=== PATIENT | female | born 1975 | race Caucasian/White ===

== ENCOUNTER → 2017-12-21 11:03 | Outpatient (CLI) | payer SELFPAY ==
[2017-12-21 12:42] LABS: Anion Gap 7 (5-15); BUN 14 mg/dL (7-18); BUN/Creat Ratio 17.8 RATIO (10-20); Calcium,Total 8.9 mg/dL (8.5-10.1); Chloride 107 mmol/L (98-107); Cholesterol 148 mg/dL (200); Creatinine, Serum 0.79 mg/dL (0.55-1.02); EST Glomerular Filtration Rate 86 mL/min (>60); Est Glom Filt Rate - Afr Amer 104 mL/min (>60); Glucose 94 mg/dL (74-106); High Density Lipoprotein 67 mg/dL; Potassium 4.1 mmol/L (3.5-5.1); Sodium Level 142 mmol/L (136-145); Thyroid Stim Hormone (TSH) 1.82 uIU/mL (0.358-3.74); Triglycerides 121 mg/dL; Very Low Density Lipoprotein 24 mg/dL (5-40)
== END ==
PROVIDERS: Family Provider Family Medicine; PCP Family Medicine; Visit Provider Family Medicine
DX: Z00.00 Encounter for general adult medical examination without abnormal findings (principal)
CPT/HCPCS: 36415; 80048; 80061; 84443

== ENCOUNTER 2018-01-13 04:16 | Emergency (ER) | payer SELFPAY ==
[2018-01-13 04:17] VITALS: BP 134/99; PULSE 92; RESP 20; TEMP 36.7; O2SAT 97; BMI 43.1
[2018-01-13] MEDS: Ibuprofen 400 MG Tablet 800 MG PO (04:30)
--- NOTE | 2018-01-13 04:58 | ED.VISSUMM ---
- ER Visit Summary Date of Service: 01/13/18 Chief Complaint: [] Sore throat History of Present Illness: The patient is a 42 F complaining of sore throat since yesterday. Denies any other symptoms. No home treatment. No sick contacts. Current severity is mild to moderate. Physical Examination: Vital signs reviewed General: Well-nourished well-developed Head: Normocephalic atraumatic Eyes: Pupils equal round and reactive to light extraocular movements intact ENT: TMs clear no hemotympanum no trauma. Throat exam shows oropharyngeal tonsillar erythema with no exudate 1-2+. Neck: Mild tender anterior lymphadenopathy Cardiovascular: Regular rate rhythm no murmurs normal S1-S2 Respiratory: No distress clear to auscultation bilaterally chest nontender Abdomen: Soft nontender nondistended normal bowel sounds no masses Back: Nontender no CVA tenderness Extremities: Nontender active range of motion ?4 extremities no trauma Skin: Normal color no trauma Neuro alert oriented cranial nerves II through XII intact normal strength sensation reflexes Test Results: [] Emergency Department Course and Treatment: [] Rapid strep negative. Patient given ibuprofen. Will continue salt water gargles and ibuprofen. This is likely viral in nature. No antibiotics are indicated Treatment Plan: [] Disposition: [] Impression: [] Viral tonsillitis pharyngitis This note was generated with [employer] dictation software. It may contain incorrect words, spelling, and punctuation that were not noted in review of the chart prior to signing ED Disposition - Plan for ED Patient: Chief Complaint: Sore Throat Referrals: Jasson Quispe MD [Primary Care Provider] -
--- NOTE | 2018-01-13 05:00 | ED.DEP ---
ED Disposition - Plan for ED Patient: Disposition: Home or Assisted Living Chief Complaint: Sore Throat Instructions: ED Pharyngitis Viral Referrals: Jasson Quispe MD [Primary Care Provider] -
[2018-01-13 05:06] VITALS: BP 134/99; PULSE 92; RESP 20; O2SAT 97
== END 2018-01-13 05:08 | disposition home or self-care (01) ==
PROVIDERS: Emergency Provider Emergency Medicine; Family Provider Family Medicine; PCP Family Medicine
DX: J03.90 Acute tonsillitis, unspecified (principal)
CPT/HCPCS: 87880; 99283

== ENCOUNTER → 2018-09-21 15:30 | Outpatient (CLI) | payer OTHER, SELFPAY ==
[2018-01-15 08:58] VITALS: BMI 41.0
[2018-09-21 17:46] LABS: Anion Gap 8 (5-15); BUN 18 mg/dL (7-18); BUN/Creat Ratio 23.6 RATIO (10-20); Calcium,Total 8.6 mg/dL (8.5-10.1); Chloride 106 mmol/L (98-107); Cholesterol 173 mg/dL (200); Creatinine, Serum 0.76 mg/dL (0.55-1.02); EST Glomerular Filtration Rate 89 mL/min (>60); Est Glom Filt Rate - Afr Amer 107 mL/min (>60); Glucose 85 mg/dL (74-106); High Density Lipoprotein 79 mg/dL; Potassium 3.6 mmol/L (3.5-5.1); Sodium Level 140 mmol/L (136-145); Thyroid Stim Hormone (TSH) 2.25 uIU/mL (0.358-3.74); Triglycerides 112 mg/dL; Very Low Density Lipoprotein 22 mg/dL (5-40)
[2018-09-21 18:40] LABS: Vitamin D,25 Hydroxy 9.6 ng/mL (29.95-100.01)
== END ==
PROVIDERS: Family Provider Family Medicine; PCP Family Medicine; Referring Provider Family Medicine; Visit Provider Family Medicine
DX: Z00.00 Encounter for general adult medical examination without abnormal findings (principal)
CPT/HCPCS: 36415; 80048; 80061; 82306; 84443

== ENCOUNTER → 2018-10-25 17:00 | Outpatient (CLI) | payer OTHER, SELFPAY ==
--- NOTE | 2018-10-25 16:47 | BI_ITS ---
MAMMOGRAPHY - BILATERAL SCREENING REASON FOR EXAM: Female, 43 years old. Routine annual screening examination. PERTINENT HISTORY: Grandmother with breast cancer. Aunt with breast cancer. TECHNIQUE: Digital bilateral breast deepika (3D mammographic acquisition) in the CC and MLO projections. 2-D mediolateral oblique (MLO) and craniocaudad (CC) views of both breasts were obtained. CAD: Full Field Digital Mammography with Computer Added Detection was performed. COMPARISON: None. Baseline examination. FINDINGS: Breast Composition: The breasts are heterogeneously dense, which may obscure small masses. There are no dominant masses or suspicious calcifications. Benign appearing bilateral axillary lymph nodes. No other significant abnormalities are identified. BI/SCREENING MAMM (CAD), BILAT IMPRESSION: Negative screening mammogram. Yearly followup mammogram recommended. (A) ASSESSMENT CATEGORY: BIRADS Category 2: Benign. A letter regarding these results will be sent to the patient by the facility within 30 days. Approximately 10% of breast cancers are not detected by mammography. A normal mammogram should not delay biopsy of a clinically suspicious abnormality. [id number] Electronically Signed: Drew Watson, at 9:00 EDT , Service support ,
== END ==
PROVIDERS: Family Provider Family Medicine; PCP Family Medicine; Referring Provider Family Medicine; Visit Provider Family Medicine
DX: Z12.31 Encounter for screening mammogram for malignant neoplasm of breast (principal)
CPT/HCPCS: 77063; 77067

== ENCOUNTER 2019-05-06 15:35 | Emergency (ER) | payer OTHER, SELFPAY ==
[2019-05-06 15:37] VITALS: BP 143/90; PULSE 83; RESP 16; TEMP 36.6; O2SAT 100; BMI 43.7
--- NOTE | 2019-05-06 16:42 | CT_ITS ---
STUDY: CT BRAIN WITHOUT CONTRAST REASON FOR EXAM: Female, 44 years old. Right-sided headache, visual changes RADIATION DOSAGE (If Supplied By Facility): CTDIvol = ( 60.81 ) mGy, DLP = ( 1021.47 ) mGycm TECHNIQUE: Transaxial CT imaging of the brain was performed without administration of intravenous contrast material. Individualized dose optimization techniques were used for this CT. COMPARISON: No relevant priors. FINDINGS: Normal soft tissue structures. Normal calvarium. Normal size ventricles and extra-axial spaces for the patient's age. Normal white matter tracts of the cerebral hemispheres. Normal basal ganglia and thalami. Normal brainstem. Normal cerebellum. There is no intracranial hemorrhage. There are no findings of an acute ischemic infarction. Normal visualized paranasal sinuses. CT/Brain/Head without Contrast IMPRESSION: Normal unenhanced CT scan of the brain. Electronically Signed: Flakito Kramer MD at 18:08 EST , Service support ,
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
--- NOTE | 2019-05-06 18:42 | ED.DEP ---
ED Disposition - Plan for ED Patient: Instructions: CONCUSSION, No Wake Up Referrals: Jasson Quispe MD [Primary Care Provider] -
[2019-05-06 18:46] VITALS: RESP 18
== END 2019-05-06 18:51 | disposition home or self-care (01) ==
PROVIDERS: Emergency Provider Emergency Medicine; Family Provider Family Medicine; PCP Family Medicine
DX: S06.0X0A Concussion without loss of consciousness, initial encounter (principal); W50.0XXA Accidental hit or strike by another person, initial encounter; Y92.89 Other specified places as the place of occurrence of the external cause; Y99.0 Civilian activity done for income or pay
CPT/HCPCS: 70450; 99282

== ENCOUNTER → 2019-12-17 | Outpatient (CLI) | payer BC, SELFPAY | END | disposition home or self-care (01) | LOC: LABSPEC 12-18 07:27 | PROVIDERS: PCP Family Medicine; Visit Provider Family Medicine Hospice and Palliative Medicine | DX: Z11.59 Encounter for screening for other viral diseases (principal) | CPT/HCPCS: 87635; G2023; U0003 ==

== ENCOUNTER → 2020-01-08 | Outpatient (CLI) | payer BC, SELFPAY ==
--- NOTE | 2020-01-08 07:53 | BI_ITS ---
MAMMOGRAPHY - BILATERAL SCREENING REASON FOR EXAM: Female, 44 years old. Routine annual screening examination. PERTINENT HISTORY: Grandmother with breast cancer. Aunt with breast cancer. TECHNIQUE: Digital bilateral breast gilberto (3D mammographic acquisition) in the CC and MLO projections. 2-D mediolateral oblique (MLO) and craniocaudad (CC) views of both breasts were obtained. CAD: Full Field Digital Mammography with Computer Added Detection was performed. COMPARISON: Comparison is made with prior study dated 10/25/2018. FINDINGS: Breast Composition: The breasts are heterogeneously dense, which may obscure small masses. There is a 1.9 cm x 1.5 cm well-defined nodule in the retroareolar region of the left breast. This may represent a cyst. Correlation with ultrasound is recommended. Stable small benign appearing bilateral axillary lymph nodes. No other significant abnormalities are identified. BI/SCREEN MAMM (CAD) W/GILBERTO BILAT IMPRESSION: 1.5 cm x 1.9 cm well-defined retroareolar nodule in the left breast. Ultrasound correlation is recommended. ASSESSMENT CATEGORY: BIRADS Category 0: Incomplete. Need additional imaging evaluation. A letter regarding these results will be sent to the patient by the facility within 30 days. Approximately 10% of breast cancers are not detected by mammography. A normal mammogram should not delay biopsy of a clinically suspicious abnormality. [id number] Electronically Signed: Drew Watson, at 9:21 EDT , Service support ,
== END | disposition home or self-care (01) ==
LOC: OPBI 07:51
PROVIDERS: PCP Family Medicine; Referring Provider Family Medicine; Visit Provider Family Medicine
DX: Z12.31 Encounter for screening mammogram for malignant neoplasm of breast (principal)
CPT/HCPCS: 77063; 77067

== ENCOUNTER → 2020-01-09 | Outpatient (CLI) | payer BC, SELFPAY ==
--- NOTE | 2020-01-09 12:54 | US_ITS ---
STUDY: ULTRASOUND BREAST - LEFT REASON FOR EXAM: Female, 44 years old. Abnormal screening mammogram. TECHNIQUE: Axial and longitudinal images of the LEFT breast were performed with a high resolution ultrasound transducer. # OF IMAGES: 34 COMPARISON: Comparison is made with prior mammogram dated 01/08/2020. FINDINGS: LEFT Breast: The mammographic abnormality corresponds to a 1.3 cm x 1.3 cm x 0.5 cm hypoechoic solid mass within a dilated duct in the retroareolar region. This is suggestive of a ductal papillomatosis. US/Breast Limited Unilateral IMPRESSION: The mammographic and mouth equals 21.3 cm x 1.3 cm x 0.5 cm papillary lesion within the dilated retroareolar ducts. Papillomatosis should be ruled out. A biopsy is recommended. ASSESSMENT CATEGORY: BIRADS Category 4: Suspicious - Biopsy Should Be Considered. A letter regarding these results will be sent to the patient by the facility within 30 days. Electronically Signed: Drew Watson, at 14:08 EDT , Service support ,
== END | disposition home or self-care (01) ==
LOC: OPUS 12:52
PROVIDERS: PCP Family Medicine; Referring Provider Family Medicine; Visit Provider Family Medicine
DX: R92.2 Inconclusive mammogram (principal)
CPT/HCPCS: 76642

== ENCOUNTER 2020-01-24 06:10 | Day surgery (SDC) | payer BC, SELFPAY ==
--- NOTE | 2020-01-14 03:24 | HP_ITS ---
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 Required: No Accompanied by: Friend Is patient in pain?: No Allergies azithromycin Allergy (Verified 01/14/20 14:54) Rash bee pollen Allergy (Verified 01/14/20 14:54) Anaphylaxis latex Allergy (Verified 01/14/20 14:54) Swelling Penicillins [PCN] Allergy (Verified 01/14/20 14:54) Angioedema Tetanus Vaccines and Toxoid Allergy (Verified 01/14/20 14:54) Anaphylaxis TETN Allergy (Uncoded 05/06/19 15:36) Swelling Medications phentermine 15 mg-topiramate ER 92 mg capsule,[id number] multphas 1 cap PO DAILY 01/14/20 [History Confirmed 01/14/20] PFSH Medical History Abnormal mammogram of left breast (Acute) Asthma (Acute) Depression (Acute) Surgical History H/O: hysterectomy (Acute) Family History (Updated 01/14/20 @ 14:52 by Barbie Everett) Mother Asthma Arthritis Diabetes Thyroid disorder Grandmother Breast cancer Aunt Breast cancer Father Colon cancer Hypertension Grandmother CVA (cerebral vascular accident) Social History (Updated 01/14/20 @ 15:[address] Malachi Nugent MD) Smoking Status: Never smoker alcohol intake: never substance use type: does not use HPI HPI HPI: JOSE DE JESUS BOWEN is a 44 F who presents to the office today for HPI HPI Surgical H&P: Yes HPI: JOSE DE JESUS BOWEN is a 44 F who presents to the office today for abnormal breast ultrasound and mammogram. The patient had a routine mammogram which showed dilated ducts on the left side. The patient then had an ultrasound which showed dilated ducts and possible papilloma and side of the duct and a mass measuring 1.3 cm below the nipple. Patient notes she is never had a breast biopsy. She is not having any discharge from her nipple. She has no breast pain. She has no family history in her immediate family of breast cancer. ROS General General: Yes weight change; no appetite, fatigue, colon cancer, breast cancer or weakness HEENT HEENT: No difficulty swallowing, eye injury, eye surgery, swollen glands or hoarseness Endo Endocrine: No thyroid disease, diabetes mellitus, thyroid cancer, Hair loss, heat intolerance or cold intolerance Skin Skin: No rash or changing moles Breast Breast: Yes abnormal mammogram and abnormal US; no left breast lump, right breast lump, nipple discharge, breast pain or breast enlargement Musc Musculoskeletal: No back problems, arthritis, rheumatoid arthritis, gout or joint pain Cardio Cardiovascular: No murmur, pacemaker, heart disease, atrial fibrillation, high blood pressure, heart attack, heart stent, palpitations, shortness of breat with exertion or chest pain Psych Psychiatric: Yes depression; no anxiety or hearing voices Resp Respiratory: No shortness of breath, No sleep apnea, No cough, No COPD, Yes asthma, No emphysema, No wheezing Gastro Gastrointestinal: No abdominal pain, No nausea or vomiting, No diarrhea, No constipation, No blood in stool, No acid reflux, No hemorrhoids, No ulcers, No gallbladder problem, No black,tarry stools Adeel Hematologic: No blood thinners, No blood disorders, No bleeding, No anemia, No blood clots Neuro Neurologic: No system reviewed and no additional complaints, except as docu, No as per HPI, No abnormal walking, No abnormal hearing, No abnormal movements, No abnormal speech, No behavioral changes, No burning sensations, No confusion, No seizure-like activity, No unsteadiness, No dizziness, No localized weakness, No frequent falls, No headache(s), No lack of coordination, No loss of vision, No memory loss, No numbness, No other visual disturbances, No radiating pain, No restless legs, No sensory deficit, No fainting, No tingling, No tremor(s), No weakness, No other Exam Const General: cooperative Orientation: alert, oriented x3 Chest Breast inspection: normal inspection of the breasts Breast Palpation: Yes normal palpation of the breasts, No nipple discharge Resp Effort & Inspection: normal respiratory effort Auscultation: clear to auscultation bilaterally Cardio Rate: regular rate Rhythm: regular rhythm Heart Sounds: no murmurs GI Inspection: non-distended Palpation: soft, nontender Assessment & Plan Problems 1. 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 Biopsy was recommended. I recommend a central ductal excision in the operating room for biopsy of this area. I did inform her of the procedure as well as the risks of bleeding and infection. I explained that I would rather perform a central duct excision as the needle biopsy would be hard to obtain due to the fact that this is intraductal. I explained the possibility of malignancy and that if there ended up being a malignancy she would need to return to the operating room for sentinel lymph node biopsy. After discussing the procedure further and answering all questions the patient wishes to proceed. We discussed the current risks associated with COVID-19. While it is understood that there is a community spread of COVID-19, the risk of anais COVID-19 while at [facility] ([facility]) is very low; however, the risk cannot be completely mitigated because of the community spread of the disease. We discussed in detail the risk of exposure to and/or potential harm posed by the COVID-19 virus with having a surgery/procedure at this time versus the risk of delaying the surgery/procedure. It is not possible to know either the risk of delaying the surgery or procedure or chance of getting an infection with perfect accuracy, but a joint decision was made to proceed at this time with the scheduled surgery/procedure as indicated on the consent form. Patient was notified that we will need to comply with any screening or testing [facility] wishes to perform or that surgery may be delayed for any positive results. 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 no changes since previous exam.
[2020-01-14 14:55] VITALS: BMI 43.7
[2020-01-24 06:44] VITALS: BP 116/63; PULSE 72; RESP 14; TEMP 36.8; O2SAT 98; BMI 41.8
[2020-01-24] MEDS: Lactated Ringers 1,000 ML 100 ML IV (07:15)
[2020-01-24] MEDS: Bupivacaine Mpf 0.5% 30 ML VIAL (07:59)
--- NOTE | 2020-01-24 08:00 | BRBX_PTH ---
PATIENT: JOSE DE JESUS BOWEN LOC: [facility] [place] U#:[id number] AGE/SX: 44/F ROOM: RE01/24/[address]: Dr. Malachi Nugent MD : 1975 BED: DIS: 01/24/2020 SPEC #: [id number] RECD: 01/24/20 08:53 STATUS: DAVID RUSSELL #: [id number] MICHAEL: 01/24/20 08:[address]: Malachi Nugent DEPT: SURGICAL PATHOLOGY RECD BY: Isreal Hansen ENTERED: 01/24/20 09:01 SP TYPE: BREAST BX OTHR DR: Dr. Jasson Quispe MD Tissues: Left breast, NOS Procedures: Surgery Specimen Level V HEADER OPERATION: Breast central ductal excision PRE-OP DIAGNOSIS: Ductal papillomatosis of left breast TISSUE SUBMITTED: Left breast central ductal excision MICROSCOPIC DIAGNOSIS Left breast, central duct, excisional biopsy: Intraductal papilloma (1.5 cm in greatest dimension). Negative for atypia or malignancy. KARI:fredrick 01/28/20 MICROSCOPIC DESCRIPTION Slides are reviewed. GROSS DESCRIPTION Received in fixative is one container labeled with the patient's name and designated left breast central ductal excision. The specimen consists of three variable sized pieces of pinto-yellow fibroadipose tissue measuring 2 x 1.5 x 1.5 cm and 2.5 x 2 x 1.5 cm and 2 x 2 x 1.5 cm. All three pieces are inked. Serial sections of two pieces reveal pinto-yellow adipose cut surfaces with focal fibrous area. Sections of third piece reveal mostly adipose cut surfaces with scant fibrous area. The entire specimen is submitted in eight cassettes as follows: 1 & 2 - one piece, 3-5 - second piece, 6-8 - third piece. Sections will be submitted after additional fixation. / KARI:fredrick 01/24/20 TC:1 CPT: 90263
[2020-01-24 08:24] VITALS: BP 116/63; BP 121/80; PULSE 92; RESP 16; TEMP 36.8; O2SAT 92
[2020-01-24 08:31] VITALS: BP 108/66; BP 116/63; PULSE 77; RESP 16; O2SAT 94
--- NOTE | 2020-01-24 08:43 | PCM.OPRPT ---
Problem List (1) Papilloma of left breast Status: Acute Report of Operation Date of Procedure: 01/24/20 Pre-Operative Diagnosis: Ductal papilloma of the left breast Post-Operative Diagnosis: Same Surgery/Procedure Performed:: Central duct excision of the left breast Description of Procedure: Patient was brought back to the operating room and general anesthesia was induced. The left breast was prepped and draped in usual sterile fashion. A marking was made around the lateral aspect of the areola. This area was anesthetized and an incision was made with a scalpel. Electrocautery was used to deepen the incision and raised flaps. The central ductal tissue was dissected free using electrocautery and removed. The cavity was irrigated and suctioned dry. Electrocautery was used to maintain hemostasis. Next the incision was closed with interrupted 3-0 Vicryls and a continuous 4-0 Monocryl suture followed by glue. The patient tolerated the procedure well was brought to PACU in stable condition. - Admit VTE Documentation VTE Mechan Device Prophylaxis: SCD's
--- NOTE | 2020-01-24 08:47 | PCM.DC.BS ---
Discharge Diet: No Restrictions Discharge Activity: May Not Drive - for 2-3 days or while taking narcotic pain meds. May shower in (days): 1 Lifting Restrictions: 10 pounds for 1 week. Call your doctor if your incision/area has: Continuous Slow Oozing, Sudden Increased Bleeding, Increased Pain/ Swelling, Increased Redness, Foul Smelling Discharge, Swelling at the incision site Call your doctor if you observe: Fever of 101 or Higher Suture Line Care: Avoid Pulling/Pushing, Avoid Pinching/Bending Remove Dressing in (days):: 1 - Remove bulky dressing tomorrow. May leave any opsite dressing for 3-4 days. Keep dressing in place until your follow-up appointment. Allergies/Adverse Reactions: Allergies azithromycin Allergy (Verified 01/24/20 06:44) Rash bee pollen Allergy (Verified 01/24/20 06:44) Anaphylaxis latex Allergy (Verified 01/24/20 06:44) Swelling Penicillins [PCN] Allergy (Verified 01/24/20 06:44) Angioedema Tetanus Vaccines and Toxoid Allergy (Verified 01/24/20 06:44) Anaphylaxis Medications to take at Discharge Cholecalciferol (Vitamin D3) [Vitamin D3] 4,000 unit PO DAILY 01/15/20 Phentermine/Topiramate [Qsymia 15 mg-92 mg Capsule] 1 ea PO DAILY 01/15/20 Hydrocodone/Acetaminophen [Hydrocodon-Acetaminophen 5-325] 1 - 2 tab PO Q6H PRN 5 Days #20 tablet 01/24/20 The following prescriptions were given: Hydrocodone/Acetaminophen [Hydrocodon-Acetaminophen 5-325] 1 - 2 tab PO Q6H PRN 5 Days #20 tablet PRN Reason: Pain Score 4-10/10 Transmission Status: Sent to [facility] Please Follow Up With: Malachi Nugent MD When: Please call to schedule 2 week follow up appointment. [phone]
[2020-01-24 08:50] VITALS: BP 114/72; BP 116/63; PULSE 67; RESP 16; O2SAT 96
[2020-01-24 08:56] VITALS: BP 107/68; BP 116/63; PULSE 66; RESP 16; TEMP 36.5; O2SAT 95
[2020-01-24 09:51] VITALS: BP 110/70; BP 116/63; PULSE 78; RESP 16; TEMP 36.6; O2SAT 99
== END 2020-01-24 09:53 | disposition home or self-care (01) ==
LOC: SDC 06:11 → AC 06:12
PROVIDERS: Anesthesiology; PCP Family Medicine; Referring Provider Family Medicine; Visit Provider Surgery
PROC: (CPT 19120; principal; 2020-01-24 07:45)
DX: D24.2 Benign neoplasm of left breast (principal); Z11.59 Encounter for screening for other viral diseases
CPT/HCPCS: 19120; 87635; 88305; 88307; 94799; J7120; J2405; U0003

== ENCOUNTER → 2020-07-10 09:00 | Outpatient (CLI) | payer BC, SELFPAY ==
[2020-07-10 10:16] LABS: Anion Gap 5 (5-15); BUN 16 mg/dL (7-18); BUN/Creat Ratio 16.1 RATIO (10-20); Chloride 113 mmol/L (98-107); Cholesterol 152 mg/dL (200); Creatinine, Serum 0.99 mg/dL (0.55-1.02); EST Glomerular Filtration Rate 65 mL/min (>60); Est Glom Filt Rate - Afr Amer 78 mL/min (>60); Glucose 103 mg/dL (74-106); High Density Lipoprotein 72 mg/dL; Potassium 4.5 mmol/L (3.5-5.1); Sodium Level 142 mmol/L (136-145); Triglycerides 79 mg/dL; Very Low Density Lipoprotein 16 mg/dL (5-40)
== END ==
PROVIDERS: PCP Family Medicine; Referring Provider Family Medicine; Visit Provider Family Medicine
DX: E66.9 Obesity, unspecified (principal)
CPT/HCPCS: 36415; 80048; 80061

== ENCOUNTER → 2020-07-24 14:12 | Outpatient (CLI) | payer BC, SELFPAY ==
--- NOTE | 2020-07-24 14:14 | BI_ITS ---
MAMMOGRAPHY - UNILATERAL DIAGNOSTIC: LEFT BREAST REASON FOR EXAM: Female, 45 years old. Six-month follow-up for left excisional breast biopsy. PERTINENT HISTORY: Grandmother with breast cancer. Aunt with breast cancer. TECHNIQUE: Digital unilateral breast deepika (3D mammographic acquisition) in the CC and MLO projections. 2-D mediolateral oblique (MLO) and craniocaudad (CC) views of both breasts were obtained. CAD: Full Field Digital Mammography with Computer Added Detection was performed. COMPARISON: Comparison is made with prior study dated 01/08/2020 and 10/25/2018. FINDINGS: Breast Composition: The breasts are heterogeneously dense, which may obscure small masses. There are no dominant masses or suspicious calcifications. Since prior study, the patient underwent excisional biopsy of the left retroareolar nodule. Stable benign-appearing bilateral axillary lymph nodes. No other significant abnormalities are identified. BI/DIAG MAMM W/CAD, UNILAT IMPRESSION: Status post resection of the left retroareolar nodule. One year follow-up mammogram recommended. (A) ASSESSMENT CATEGORY: BIRADS Category 2: Benign. A letter regarding these results will be sent to the patient by the facility within 30 days. Approximately 10% of breast cancers are not detected by mammography. A normal mammogram should not delay biopsy of a clinically suspicious abnormality. Electronically Signed: Drew Watson MD at 8:14 EST , Service support ,
--- NOTE | 2020-07-24 15:07 | US_ITS ---
STUDY: ULTRASOUND BREAST - LEFT REASON FOR EXAM: Female, 45 years old. Prior excisional breast biopsy for papilloma. TECHNIQUE: Axial and longitudinal images of the LEFT breast were performed with a high resolution ultrasound transducer. # OF IMAGES: 24 COMPARISON: Comparison is made with prior ultrasound dated 01/09/2020 and prior mammograms dated 07/24/2020. FINDINGS: LEFT Breast: The previously seen hypoechoic solid nodule within the dilated retroareolar duct is not seen at this time in keeping with prior resection. US/Breast Limited Unilateral IMPRESSION: Unremarkable sonogram. Status post resection of the papilloma. ASSESSMENT CATEGORY: BIRADS Category 2: Benign. A letter regarding these results will be sent to the patient by the facility within 30 days. Electronically Signed: Drew Watson MD at 9:12 EST , Service support ,
== END ==
PROVIDERS: PCP Family Medicine; Referring Provider Surgery; Visit Provider Surgery
DX: D24.2 Benign neoplasm of left breast (principal); Z98.890 Other specified postprocedural states
CPT/HCPCS: 76642; 77061; 77065; G0279

== ENCOUNTER → 2021-01-13 15:51 | Outpatient (CLI) | payer BC, SELFPAY ==
[2021-01-13 17:48] LABS: Absolute Lymphocyte Count 2.28 X10^3/uL (0.83-4.51); Absolute Neutrophil Count 3.6 X10^3/uL (2.0-7.7); Basophil# 0.05 X10^3/uL; Basophil% 0.8 % (0-1); Eosinophil# 0.15 X10^3/uL; Eosinophils% 2.3 % (0-5); Hematocrit 41.9 % (37-47); Hemoglobin 13.4 g/dL (12.0-15.0); Lymphocyte # 2.28 X10^3/ul (0.83-4.51); Mean Corpuscular Hgb 28.9 pg (27.0-32.0); Mean Corpuscular Volume 90.3 fL (81-99); Mean Platelet Vol. 10.1 fl (6.2-12.0); Monocyte# 0.45 X10^3/uL; Monocyte% 6.9 % (0-10); NRBC Flagged by Analyzer 0 % (0-5); Neutrophil # 3.57 X10^3/uL (2.7-7.7); Neutrophil % 54.7 % (47-70); Platelet Count 224 K/mm3 (150-450); RBC Distribution Width CV 14.2 % (11.6-14.6); RBC Distribution Width SD 46.8 fl (35.1-43.9); Red Blood Count 4.64 M/mm3 (4.2-5.4); White Blood Count 6.5 K/mm3 (4.4-11.0)
[2021-01-13 17:59] LABS: Erythrocyte Sedimentation Rate 6 mm/hr (0-30)
[2021-01-13 18:11] LABS: CRP 6.06 mg/L (0.0-3.0)
== END ==
PROVIDERS: PCP Family Medicine; Referring Provider Family Medicine; Visit Provider Family Medicine
DX: H57.9 Unspecified disorder of eye and adnexa (principal)
CPT/HCPCS: 36415; 85025; 85652; 86140

== ENCOUNTER → 2021-03-26 09:12 | Outpatient (CLI) | payer BC, SELFPAY ==
--- NOTE | 2021-03-26 09:18 | US_ITS ---
STUDY: ULTRASOUND BREAST - RIGHT REASON FOR EXAM: Female, 46 years old. Palpable lump in the right breast. TECHNIQUE: Axial and longitudinal images of the RIGHT breast were performed with a high resolution ultrasound transducer. # OF IMAGES: 34 COMPARISON: Comparison is made with prior mammogram done earlier in the day. FINDINGS: RIGHT Breast: The lower outer quadrant of the right breast was examined by ultrasound. No sonographic abnormality is seen. US/Breast Limited Unilateral IMPRESSION: No sonographic abnormality is seen. ASSESSMENT CATEGORY: BIRADS Category 1: Negative. A letter regarding these results will be sent to the patient by the facility within 30 days. Electronically Signed: Drew Watson MD at 11:23 EDT , Service support ,
--- NOTE | 2021-03-26 09:18 | BI_ITS ---
MAMMOGRAPHY - UNILATERAL DIAGNOSTIC: RIGHT BREAST REASON FOR EXAM: Female, 46 years old. 2 week history of right breast lump. PERTINENT HISTORY: Grandmother with breast cancer. Aunt with breast cancer. Prior left excisional breast biopsy TECHNIQUE: Digital unilateral breast deepika (3D mammographic acquisition) in the CC and MLO projections. 2-D mediolateral oblique (MLO) and craniocaudad (CC) views of both breasts were obtained. CAD: Full Field Digital Mammography with Computer Added Detection was performed. COMPARISON: Comparison is made with prior mammogram dated 07/24/2020 and 01/08/2020. FINDINGS: Breast Composition: The breasts are heterogeneously dense, which may obscure small masses. There are no dominant masses or suspicious calcifications. No other significant abnormalities are identified. Stable benign-appearing right axillary lymph nodes. BI/DIAG MAMM W/CAD, UNILAT IMPRESSION: Stable unilateral diagnostic mammogram. With the patient''s history of a right palpable breast lump, correlation with ultrasound is recommended. ASSESSMENT CATEGORY: BIRADS Category 0: Incomplete. Need additional imaging evaluation. A letter regarding these results will be sent to the patient by the facility within 30 days. Approximately 10% of breast cancers are not detected by mammography. A normal mammogram should not delay biopsy of a clinically suspicious abnormality. Electronically Signed: Drew Watson MD at 11:22 EDT , Service support ,
== END ==
PROVIDERS: PCP Family Medicine; Referring Provider Surgery; Visit Provider Surgery
DX: N63.10 Unspecified lump in the right breast, unspecified quadrant (principal)
CPT/HCPCS: 76642; 77061; 77065; G0279

== ENCOUNTER → 2022-05-11 | Outpatient (CLI) | payer BC, SELFPAY ==
--- NOTE | 2022-05-11 08:58 | RAD_ITS ---
STUDY: X-RAY - RIGHT KNEE REASON FOR EXAM: Female, 47 years old. Pain after feeling a pop 1 month ago. TECHNIQUE: 4 view(s) of the knee. COMPARISON: None. FINDINGS: Normal visualized distal femur. Normal visualized proximal tibia and fibula. Normal proximal tibiofibular articulation. Mild narrowing of the medial femorotibial compartment. Normal lateral femorotibial compartment. Lateral tilt of the patella with mild thinning of the articular cartilage of the lateral patellofemoral compartment. The soft tissue structures are unremarkable. RAD/Knee 4 or More Views IMPRESSION: Mild medial and patellofemoral compartmental arthrosis. No acute finding. Electronically Signed: Gold Elizalde, at 11:34 EST ,
== END | disposition home or self-care (01) ==
PROVIDERS: PCP Family Medicine; Referring Provider Family Medicine; Visit Provider Family Medicine
DX: M25.561 Pain in right knee (principal)
CPT/HCPCS: 73564

== ENCOUNTER → 2022-09-09 | Outpatient (CLI) | payer BC, SELFPAY ==
--- NOTE | 2022-09-09 08:08 | BI_ITS ---
MAMMOGRAPHY - BILATERAL SCREENING REASON FOR EXAM: Female, 47 years old. Routine annual screening examination. PERTINENT HISTORY: Grandmother with breast cancer. Aunt with breast cancer. TECHNIQUE: Digital bilateral breast gilberto (3D mammographic acquisition) in the CC and MLO projections. 2-D mediolateral oblique (MLO) and craniocaudad (CC) views of both breasts were obtained. CAD: Full Field Digital Mammography with Computer Added Detection was performed. COMPARISON: Comparison is made with prior study dated March 26, 2021 and January 08, 2020. FINDINGS: Breast Composition: The breasts are heterogeneously dense, which may obscure small masses. There are no dominant masses or suspicious calcifications. Multiple small benign-appearing bilateral axillary lymph nodes. No other significant abnormalities are identified. There has been no significant change since the prior study. BI/SCRN MAMM (CAD)W/GILBERTO BILAT IMPRESSION: Stable bilateral screening mammogram. Yearly follow-up mammogram recommended. (A) ASSESSMENT CATEGORY: BIRADS Category 2: Benign. A letter regarding these results will be sent to the patient by the facility within 30 days. Approximately 10% of breast cancers are not detected by mammography. A normal mammogram should not delay biopsy of a clinically suspicious abnormality. [id number] Electronically Signed: Drew Watson MD at 10:01 EDT ,
== END | disposition home or self-care (01) ==
LOC: OPBI 08:06
PROVIDERS: PCP Family Medicine; Referring Provider Family Medicine; Visit Provider Family Medicine
DX: Z12.31 Encounter for screening mammogram for malignant neoplasm of breast (principal)
CPT/HCPCS: 77063; 77067

== ENCOUNTER → 2023-07-05 | Outpatient (CLI) | payer OTHER, SELFPAY ==
--- OUTSIDE RECORDS SUMMARY | 2023-07-05 09:36 | XMS RPT_ITS | CCD ---
Author Name Unknown Address [id number] [place] [address] Organization [facility] Care Team Providers Care Machine Group Leader Name Role Phone Jennifer Up LPN Unavailable Unavailab le Jennifer Up LPN Unavailable Unavailab le Allergies Allergy Classification Reported Allergen(s) Allergy Type Date of Onset Reaction(s) Facility (2 sources) azithromycin drug allergy 01-30-2017 [facility] [place] Work Phone: (2 sources) Latex rubber gloves drug allergy 01-30-2017 [facility] [place] [facility] Work Phone: (2 sources) penicillin v drug allergy 01-30-2017 [facility] Work Phone: Medications Completed/Discontinued Medications Medication Drug Class(es) Dates Sig (Normalized) Sig (Original) IBUPROFEN CAPS (2 sources) Nonsteroidal Anti-inflammatory Drug Start: 01-30-2017 ADV[facility] CAPS as directed IBUPROFEN CAPS [id number] Jennifer Up LPN Problems Problem Classification Problem Date Documented Da te Episodic/Chronic Superficial injury; contusion (2 sources) Contusion of left foot, initial encounter; Translations: [Contusion of left foot, initial encounter] Onset: 01-30-2017 01-30-2017 Episodic Results Test Name Value Interpretation Reference Range Facil ity Vital Signs Date Time Vital Sign Value Performing Clinician Faci lity 01-30-2017 14:59-0400 BMI (Body Mass Index) 44.5 kg/m2 Jennifer Up LPN [facility] [place] [facility] Work Phone: 01-30-2017 14:59-0400 Body Temperature 98.3 [degF] Jennifer Up LPN [facility] [place] [facility] Work Phone: 01-30-2017 14:59-0400 BP Diastolic 90 mm[Hg] Jennifer Up LPN [facility] [place] [facility] Work Phone: 01-30-2017 14:59-0400 BP Systolic 134 mm[Hg] Jennifer Up LPN [facility] [place] Work Phone: 01-30-2017 14:59-0400 Height 166.37 cm Jennifer Up LPN [facility] [place] [facility] Work Phone: 01-30-2017 14:59-0400 Pulse (Heart Rate) 93 /min Jennifer Up LPN [facility] [place] [facility] Work Phone: 01-30-2017 14:59-0400 Respiratory Rate 14 /min Jennifer Up LPN [facility] [place] [facility] [place] Work Phone: 01-30-2017 14:59-0400 Weight 123.2 kg Jennifer Up LPN [facility] [place] [facility] Work Phone: Plan of Treatment Date Care Activity Detail Author Start: 01-30-2017 End: 01-30-[address] [facility] Work Phone: [facility] Work Phone: Summary Purpose Family History No Family History Records Found Advance Directives No Advanced Directives Records Found Additional Source Comments INFORMATION SOURCE (unrecogn ized section and content) FOR RECORDS PERTAINING TO PATIENTS WHO ARE OR HAVE BEEN ENROLLED IN A CHEMICAL DEPENDENCY/SUBSTANCEABUSE PROGRAM, SOME INFORMATION MAY BE OMITTED. This clinical summary was aggregated from multiple sources. Caution should be exercised in using it in the provision of clinical care. This summary normalizes information from multiple sources, and as a consequence, information in this document may materially change the coding, format and clinical context of patient data. In addition, data may be omitted in some cases. CLINICAL DECISIONS SHOULD BE BASED ON THE PRIMARY CLINICAL RECORDS. [employer] [facility]. provides no warranty or guarantee of the accuracy or completeness of information in this document.
[2023-07-05 11:40] LABS: Anion Gap 3 (5-15); BUN 22 mg/dL (7-18); BUN/Creat Ratio 25.1 RATIO (10-20); Calcium,Total 9.1 mg/dL (8.5-10.1); Chloride 107 mmol/L (98-107); Cholesterol 165 mg/dL (200); Creatinine, Serum 0.88 mg/dL (0.55-1.02); EST Glomerular Filtration Rate 74 mL/min (>60); Est Glom Filt Rate - Afr Amer 89 mL/min (>60); Glucose 107 mg/dL (74-106); High Density Lipoprotein 70 mg/dL; Potassium 4.4 mmol/L (3.5-5.1); Sodium Level 138 mmol/L (136-145); Triglycerides 85 mg/dL; Very Low Density Lipoprotein 17 mg/dL (5-40)
== END | disposition home or self-care (01) ==
LOC: MFPLAB 09:09
PROVIDERS: PCP Family Medicine; Visit Provider Family Medicine
DX: Z00.00 Encounter for general adult medical examination without abnormal findings (principal)
CPT/HCPCS: 36415; 80048; 80061

== ENCOUNTER → 2023-10-19 | Outpatient (CLI) | payer OTHER, SELFPAY ==
[2023-10-19 17:47] LABS: Absolute Neutrophil Count 4.2 X10^3/uL (2.0-7.7); Basophil# 0.04 X10^3/uL; Basophil% 0.6 % (0-1); Eosinophil# 0.12 X10^3/uL; Eosinophils% 1.7 % (0-5); Hematocrit 41.4 % (37-47); Hemoglobin 12.9 g/dL (12.0-15.0); Lymphocyte % 32.3 % (19-41); Mean Corp Hgb Conc 31.2 g/dL (32-36); Mean Corpuscular Hgb 27.2 pg (27.0-32.0); Mean Corpuscular Volume 87.3 fL (81-99); Mean Platelet Vol. 10.8 fl (6.2-12.0); Monocyte# 0.42 X10^3/uL; Monocyte% 5.9 % (0-10); NRBC Flagged by Analyzer 0 % (0-5); Neutrophil # 4.22 X10^3/uL (2.7-7.7); Neutrophil % 59.2 % (47-70); Platelet Count 228 K/mm3 (150-450); RBC Distribution Width CV 14.4 % (11.6-14.6); RBC Distribution Width SD 45.9 fl (35.1-43.9); Red Blood Count 4.74 M/mm3 (4.2-5.4); White Blood Count 7.1 K/mm3 (4.4-11.0)
[2023-10-19 18:23] LABS: Anion Gap 5 (5-15); BUN 20 mg/dL (7-18); BUN/Creat Ratio 24.6 RATIO (10-20); Calcium,Total 9.3 mg/dL (8.5-10.1); Chloride 112 mmol/L (98-107); Creatinine, Serum 0.81 mg/dL (0.55-1.02); EST Glomerular Filtration Rate 80 mL/min (>60); Est Glom Filt Rate - Afr Amer 97 mL/min (>60); Glucose 97 mg/dL (74-106); Potassium 3.7 mmol/L (3.5-5.1); Sodium Level 141 mmol/L (136-145)
== END | disposition home or self-care (01) ==
LOC: MFPLAB 14:53
PROVIDERS: PCP Family Medicine; Visit Provider Family Medicine
DX: R42 Dizziness and giddiness (principal)
CPT/HCPCS: 36415; 80048; 85025

== ENCOUNTER → 2023-10-30 | Outpatient (CLI) | payer OTHER, SELFPAY ==
--- NOTE | 2023-10-30 14:55 | BI_ITS ---
MAMMOGRAPHY - BILATERAL SCREENING 3-D TOMOSYNTHESIS REASON FOR EXAM: Female, 48 years old. SCREENING PERTINENT HISTORY: No significant family history. TECHNIQUE: 2-D mammograms and 3-D Tomosynthesis of the breast (s) were performed. CAD was performed. COMPARISON: 09/09/2022 FINDINGS: The breast composition is heterogeneously dense that can obscure small breast masses. Scattered benign calcifications are seen. No dense spiculated masses or suspicious microcalcifications are identified. No architectural distortion is identified. There is no skin thickening or retraction. There has been no significant change since the prior study. BI/SCRN MAMM (CAD)W/GILBERTO BILAT IMPRESSION: No mammographic signs of malignancy. Routine yearly mammograms recommended. ASSESSMENT CATEGORY: BIRADS Category 1: Negative. A letter regarding these results will be sent to the patient by the facility within 30 days. FOLLOW UP RECOMMENDATION: Yearly follow up mammogram recommended. (A) Approximately 10% of breast cancers are not detected by mammography. A normal mammogram should not delay biopsy of a clinically suspicious abnormality. Electronically Signed: Dajuan Antonio MD at 16:10 EDT ,
== END | disposition home or self-care (01) ==
LOC: OPBI 14:54
PROVIDERS: PCP Family Medicine; Referring Provider Family Medicine; Visit Provider Family Medicine
DX: Z12.31 Encounter for screening mammogram for malignant neoplasm of breast (principal)
CPT/HCPCS: 77063; 77067

== ENCOUNTER → 2024-02-16 | Outpatient (CLI) | payer OTHER, SELFPAY ==
--- NOTE | 2024-02-16 10:00 | RAD_ITS ---
STUDY: X-RAY - PELVIS AND RIGHT HIP REASON FOR EXAM: Female, 48 years old. HIP PAIN TECHNIQUE: 3 views of the pelvis and right hip. COMPARISON: None. FINDINGS: There is a non-specific bowel gas pattern. Normal visualized soft tissue structures. Normal bilateral iliac wings, sacroiliac joints and visualized sacrum. Normal bilateral superior and inferior pubic rami. Normal pubic symphysis. Normal bilateral ischial tuberosities. Normal visualized femoral head. Normal acetabulum. Normal hip joint. There is no demonstrated acute fracture. RAD/HIP, UNI W/ Pelvis 2-3 Views IMPRESSION: Normal x-ray examination of the pelvis and right hip. Electronically Signed: Adilson Lozoya MD at 10:14 EDT ,
== END | disposition home or self-care (01) ==
LOC: MTRAD 09:56
PROVIDERS: PCP Family Medicine; Referring Provider Family Medicine; Visit Provider Family Medicine
DX: M25.551 Pain in right hip (principal)
CPT/HCPCS: 73502

== ENCOUNTER → 2024-07-22 | Outpatient (CLI) | payer BC, SELFPAY ==
[2024-07-22 12:56] LABS: Anion Gap 7 (5-15); BUN 20 mg/dL (7-18); BUN/Creat Ratio 28.4 RATIO (10-20); Chloride 107 mmol/L (98-107); Cholesterol 171 mg/dL (200); EST Glomerular Filtration Rate 95 mL/min (>60); Est Glom Filt Rate - Afr Amer 115 mL/min (>60); Glucose 100 mg/dL (74-106); High Density Lipoprotein 79 mg/dL; Potassium 4.1 mmol/L (3.5-5.1); Sodium Level 139 mmol/L (136-145); Triglycerides 97 mg/dL; Very Low Density Lipoprotein 19 mg/dL (5-40)
== END | disposition home or self-care (01) ==
PROVIDERS: PCP Family Medicine; Referring Provider Family Medicine; Visit Provider Family Medicine
DX: Z00.00 Encounter for general adult medical examination without abnormal findings (principal)
CPT/HCPCS: 36415; 80048; 80061

== ENCOUNTER → 2024-12-17 | Outpatient (CLI) | payer BC, SELFPAY ==
--- NOTE | 2024-12-17 14:43 | BI_ITS ---
EXAM: SCRN MAMM (CAD)W/GILBERTO BILAT DATE: 12/17/2024 CLINICAL HISTORY: F, Age 49 y/o , SCREENING TECHNIQUE: SCRN MAMM (CAD)W/GILBERTO BILAT COMPARISON: Prior exam(s) were compared FINDINGS: TISSUE DENSITY: The breasts are heterogeneously dense, which may obscure small masses. Bilateral Breast Mammographic Findings: Right breast: No suspicious masses, calcifications or other abnormalities are identified. Left breast: There are 2 masses in the central outer and upper-outer left breast mid depth BI/SCRN MAMM (CAD)W/GILBERTO BILAT IMPRESSION: Additional diagnostic imaging is recommended of the left breast. No mammographic evidence of malignancy in the right breast. OVERALL FINAL ASSESSMENT BI-RADS 0: INCOMPLETE - NEED ADDITIONAL IMAGING EVALUATION. RECOMMENDATION: Additional Views obtained/call backs A letter with findings and recommendations will be mailed to the patient. Reading Location: [id number]
== END | disposition home or self-care (01) ==
LOC: OPBI 14:42
PROVIDERS: PCP Family Medicine; Referring Provider Family Medicine; Visit Provider Family Medicine
DX: Z12.31 Encounter for screening mammogram for malignant neoplasm of breast (principal)
CPT/HCPCS: 77063; 77067

== ENCOUNTER → 2024-12-26 | Outpatient (CLI) | payer BC, SELFPAY ==
--- NOTE | 2024-12-26 08:46 | BI_ITS ---
EXAM: DIAG MAMM W/CAD, UNILAT 12/26/2024 CLINICAL HISTORY: F, Age 49 y/o , ABN MAMM. Abnormal screening mammogram with nodular densities in the central outer aspect of the left breast. TECHNIQUE: DIAG MAMM W/CAD, UNILAT.. Compression spot views in the mediolateral oblique and craniocaudad projections as well as 90 degree lateral view of the left breast were obtained. COMPARISON: Prior exam(s) dated December 17, 2024.. FINDINGS: TISSUE DENSITY: The breasts are heterogeneously dense, which may obscure small masses. Bilateral Breast Mammographic Findings: There appears to be 2, adjacent subcentimeter nodules in the central depth of the breast. Correlation with ultrasound recommended. BI/DIAG MAMM W/CAD, UNILAT IMPRESSION: Persistent 2, adjacent nodular densities as described. Targeted sonographic co rrelation recommended. OVERALL FINAL ASSESSMENT BI-RADS 0: INCOMPLETE - NEED ADDITIONAL IMAGING EVALUATION. RECOMMENDATION: Ultrasound Recommended A letter with findings and recommendations will be mailed to the patient. Reading Location: [place] [id number]
--- NOTE | 2024-12-26 08:46 | BI_ITS ---
EXAM: DIAG MAMM W/CAD, UNILAT 12/26/2024 CLINICAL HISTORY: F, Age 49 y/o , ABN MAMM. Abnormal screening mammogram with nodular densities in the central outer aspect of the left breast. TECHNIQUE: DIAG MAMM W/CAD, UNILAT.. Compression spot views in the mediolateral oblique and craniocaudad projections as well as 90 degree lateral view of the left breast were obtained. COMPARISON: Prior exam(s) dated December 17, 2024.. FINDINGS: TISSUE DENSITY: The breasts are heterogeneously dense, which may obscure small masses. Bilateral Breast Mammographic Findings: There appears to be 2, adjacent subcentimeter nodules in the central depth of the breast. Correlation with ultrasound recommended. BI/DIAG MAMM W/CAD, UNILAT IMPRESSION: Persistent 2, adjacent nodular densities as described. Targeted sonographic co rrelation recommended. OVERALL FINAL ASSESSMENT BI-RADS 0: INCOMPLETE - NEED ADDITIONAL IMAGING EVALUATION. RECOMMENDATION: Ultrasound Recommended A letter with findings and recommendations will be mailed to the patient. Reading Location: [place] [address]
--- NOTE | 2024-12-26 08:47 | US_ITS ---
PROCEDURE: BREAST LIMITED UNILATERAL 12/26/2024 REASON FOR EXAM: F, Age 49 y/o , ABN MAMM Abnormal screening mammogram. COMPARISON: Prior mammogram done earlier in the day.. TECHNIQUE: BREAST LIMITED UNILATERAL FINDINGS: There is a 1 cm x 1.1 cm x 0.8 cm cyst at the 3 o'clock position of the breast at 7-8 cm from the nipple. Adjacent to this, there is also evidence of a 7 mm x 8 mm x 5 mm cyst. US/Breast Limited Unilateral IMPRESSION: There are 2, small adjacent cysts at the 3 o'clock position of the breast at 7- 8 cm from the nipple. BI-RADS 2: BENIGN RECOMMENDATION: Routine annual follow-up in 1 Year Reading Location: [place] [id number]
--- NOTE | 2024-12-26 08:47 | US_ITS ---
PROCEDURE: BREAST LIMITED UNILATERAL 12/26/2024 REASON FOR EXAM: F, Age 49 y/o , ABN MAMM Abnormal screening mammogram. COMPARISON: Prior mammogram done earlier in the day.. TECHNIQUE: BREAST LIMITED UNILATERAL FINDINGS: There is a 1 cm x 1.1 cm x 0.8 cm cyst at the 3 o'clock position of the breast at 7-8 cm from the nipple. Adjacent to this, there is also evidence of a 7 mm x 8 mm x 5 mm cyst. US/Breast Limited Unilateral IMPRESSION: There are 2, small adjacent cysts at the 3 o'clock position of the breast at 7- 8 cm from the nipple. BI-RADS 2: BENIGN RECOMMENDATION: Routine annual follow-up in 1 Year Reading Location: [place] [address]
== END | disposition home or self-care (01) ==
PROVIDERS: PCP Family Medicine; Referring Provider Family Medicine; Visit Provider Family Medicine
DX: N63.25 Unspecified lump in the left breast, overlapping quadrants (principal)
CPT/HCPCS: 76642; 77065

== ENCOUNTER 2025-01-21 16:47 | Emergency (ER) | payer BC, SELFPAY ==
[2025-01-21 16:48] VITALS: BP 162/103; PULSE 86; RESP 14; TEMP 37.1; O2SAT 96; BMI 44.1
[2025-01-21 17:04] VITALS: BP 162/103; PULSE 86; RESP 14; TEMP 37.1; O2SAT 96
--- NOTE | 2025-01-21 17:59 | EX.ED.DYSGE1 ---
HPI History of Present Illness Chief Complaint: Rash Informant: patient Onset/Context/Timing Onset: Weeks Context: Gradual Onset Timing: Continuous Current Severity: Moderate Maximum Severity: Moderate Narrative Narrative: 49-year-old female no significant past medical history. She has had poison nikia before. Says she has had a rash for the last 2 weeks is only gotten worse. She says that the itching is only getting worse. As has the rash. Initially saw an urgent care was placed on prednisone 20 mg a day then increase to 50 mg a day for 10 days. She also had a Kenalog shot without relief. Saw her primary care physician within the last several days and was started on Keflex and Bactrim also. Prior similar symptoms: Yes Recent Illness/Hospitalization: No [facility] Medical History Physical exam, pre-employment Breast mass, right Asthma Depression Abnormal mammogram of left breast Home Medications ?Medication ?Instructions ?Recorded ?Last Taken ?Type cholecalciferol (vitamin D3) 50 4,000 unit PO DAILY 01/15/20 01/21/25 History mcg (2,000 unit) capsule semaglutide 0.25 mg/0.05 mL See Rx Instructions subcut .weekly 01/13/25 Unknown History subcutaneous syringe cephalexin 500 mg capsule 500 mg PO TID 01/21/25 01/21/25 History prednisone 50 mg tablet 50 mg PO DAILY 10 days #10 tabs 01/21/25 Unknown Rx sulfamethoxazole 800 2 tab PO BID 01/21/25 01/21/25 History mg-trimethoprim 160 mg tablet Allergy/AdvReac Type Severity Reaction Status Date / Time azithromycin Allergy Rash Verified 01/21/25 16:47 bee pollen Allergy Anaphylaxis Verified 01/21/25 16:47 latex Allergy Swelling Verified 01/21/25 16:47 Penicillins (PCN) Allergy Angioedema Verified 01/21/25 16:47 Tetanus Vaccines and Toxoid Allergy Anaphylaxis Verified 01/21/25 16:47 Family History Mother Asthma Arthritis Diabetes Thyroid disorder Grandmother Breast cancer Aunt Breast cancer Father Colon cancer Hypertension Grandmother CVA (cerebral vascular accident) Surgical History H/O breast surgery history of ductal excision (~01/2020) H/O: hysterectomy Social History Smoking Status: Never smoker alcohol intake: never substance use type: does not use ROS ROS ED ROS Narrative Rash. Itching. Constitutional Constitutional ED: Denies chills or fever(s) Eyes Eyes: Denies blurry vision ENT ENT ED: Denies ear pain Cardiovascular Cardiovascular: Denies chest pain Respiratory/Chest Respiratory/Chest: Denies cough or dyspnea Gastrointestinal Gastrointestinal: Denies abdominal pain Genitourinary Genitourinary ED: Denies dysuria or hematuria Musculoskeletal Musculoskeletal: Denies arthralgias Integumentary Reports rash; Denies abscess or Abrasions Neurologic Neurologic: Denies headache(s) Psychiatric Psychiatric: Denies anxiety or depression Endocrine Endocrinology: Denies cold intolerance Hematologic/Lymphatic Hematologic/Lymphatic: Reports none Allergic/Immunologic Allergic/Immunologic ED: Denies mouth swelling, tongue swelling or urticaria EXAM Physical Exam Narrative Exam Narrative: Well-appearing 49-year-old female sitting upright in bed. Vital signs stable afebrile. Does not look septic toxic. No distress. H EENT exam pupils round react light. Moist mucous membranes. Neck nontender JVD. No lymphadenopathy. Lungs clear to auscultation bilaterally. Heart regular rhythm no murmur rate about 80. Abdomen soft nontender. Moving all 4 extremities. Nontender no edema. She has a rash on both upper and lower extremities it is red it blanches. There is no petechiae or purpura. There is no vesicles. There is no pus. There is no lymphangitic streaking. It does appear to be a rash consistent with an allergic reaction. It is not specifically tender to touch. There is no necrotic tissue. There is no sloughing of skin. No subcu air. There is abrasions from where she scratched. It is also on her back abdomen and chest. Neurologically she is awake and alert. Answering questions following commands. Const Vital Signs: 01/21/25 16:48 01/21/25 17:04 Temperature 98.8 F 98.8 F Temperature Source Oral Oral Pulse Rate 86 86 Respiratory Rate 14 14 Blood Pressure 162/103 H 162/103 H Blood Pressure Mean 122 122 Pulse Ox 96 96 Oxygen Delivery Method Room Air Room Air Positive well developed; Negative for cachectic, contractures or unkempt General Appearance ED: well developed and NAD; Negative for unkempt, cachectic, contractures, cyanotic, diaphoretic or pallor Nutritional Appearance: Negative for cachectic HEENT Reports moist mucous membranes Eyes PERRL and EOMs intact bilaterally Neck no lymphadenopathy, supple and no JVD Chest Wall inspection of chest normal and palpation of chest normal Resp normal respiratory effort and clear to auscultation bilaterally Cardio regular rate, regular rhythm, S1 normal heart sound, S2 normal heart sound and no murmurs GI normal to inspection, nondistended, normoactive bowel sounds, non-tender, non-distended and no masses Auscultation: normoactive bowel sounds Palpation: soft; Negative for tender, guarding or rebound tenderness present Back/Spine no CVA tenderness Extremity normal to inspection General Extremety ED: Negative for edema or tenderness General Extremity: Negative for edema Neuro oriented x3 and CN's II-XII intact bilaterally Sensorium / Orientation: alert Motor Exam: strength 5/5 throughout Psych mental status grossly normal Appearance: Negative for unkempt Skin No no rashes or lesions noted and skin turgor normal Skin Narrative: Diffuse rash on both upper and lower extremities. Back, chest and abdomen. Consistent with a contact dermatitis. There is redness that blanches. There is no sloughing of skin. There is excoriation from where she scratched it. There is no other chronic in. No subcu air. No lymphangitic streaking or adenopathy. General Skin Exam: elasticity normal; Negative for jaundice or pallor Rashes: rashes noted MDM MDM MDM Narrative Medical decision making narrative: 49-year-old female with a rash that looks like a contact dermatitis with secondary excoriations from itching. She is already on Bactrim and Keflex for possible secondary infection and should be placed back on prednisone and outpatient follow-up with one of the 2 local [facility] stretcher. History & Record Review Discussion w/independent historian: Patient Discharge Plan Triage Chief Complaint: Rash ED Provider: Edward Conklin Dx/Rx/DC Orders Clinical Impression: Contact dermatitis Instructions: ED Contact Dermatitis Prescriptions: New prednisone 50 mg tablet 50 mg PO DAILY 10 Days Qty: 10 0RF No Action semaglutide 0.25 mg/0.05 mL syringe See Rx Instructions subcut .weekly Rx Instructions: subcutaneously WEEKLY; Every Monday cholecalciferol (vitamin D3) 2,000 UNIT capsule 4,000 unit PO DAILY sulfamethoxazole-trimethoprim 800-160 mg tablet 2 tab PO BID cephalexin 500 mg capsule 500 mg PO TID Primary Care Provider: Jasson Quispe Referrals: Ruma Schulte MD [Non-Staff] - As soon as possible (Call to be seen as soon as possible) Jasson Quispe MD [Primary Care Provider] - Germain Amado MD [Med Staff - Private Detective] - As soon as possible Activity Restrictions/Additional Instructions: Start the steroid 50 mg a day. Benadryl for itching. Calamine lotion to the rash. Aveeno water added to your bath water to help soothe it. Call both brim stretcher office first thing tomorrow morning. After 8 AM. See which when you get into first hopefully you get into one of them either tomorrow or Monday. Return if worse. Print Language: Kenyan Disposition Disposition: Home, Self Care
[2025-01-21 18:14] VITALS: BP 130/79; PULSE 77; RESP 16; TEMP 37.1; O2SAT 96
[2025-01-21 18:19] VITALS: BP 130/79; PULSE 77; RESP 16; TEMP 37.1; O2SAT 96
== END 2025-01-21 18:19 | disposition home or self-care (01) ==
PROVIDERS: Emergency Provider Emergency Medicine; PCP Family Medicine; Visit Provider Emergency Medicine
DX: L25.9 Unspecified contact dermatitis, unspecified cause (principal)
CPT/HCPCS: 99282

== ENCOUNTER → 2025-03-03 | Outpatient (CLI) | payer BC, SELFPAY ==
--- NOTE | 2025-03-03 15:30 | RAD_ITS ---
PROCEDURE: WRIST MIN 3 VIEWS 03/03/2025 REASON FOR EXAM: PAIN TECHNIQUE: Procedure Code: RADWR Modality: DX Procedure: WRIST MIN 3 VIEWS Laterality: Right COMPARISON: None. RAD/Wrist min 3 Views IMPRESSION: No significant degree of ulnar variance is seen. Minimal degenerative changes are seen at the radial aspect of the wrist and 1st carpal-metacarpal joint. Satisfactory carpal alignment is noted. No fracture or dislocation is seen. Reading [id number]
== END | disposition home or self-care (01) ==
LOC: MTRAD 15:30
PROVIDERS: PCP Family Medicine; Referring Provider Physician Assistant; Visit Provider Physician Assistant
DX: S69.91XA Unspecified injury of right wrist, hand and finger(s), initial encounter (principal); X58.XXXA Exposure to other specified factors, initial encounter
CPT/HCPCS: 73110

== ENCOUNTER 2025-04-16 17:30 | Outpatient (RCR) | payer OTHER, BC, SELFPAY ==
--- NOTE | 2025-03-19 16:20 | HP.OTEVAL ---
Patient's Visit Information Visit Information Visit Information: JOSE DE JESUS BOWEN is a 50 year old F, referred to Occupational Therapy by JOSE Murrell, with a diagnosis of R wrist strain. Date of Evaluation: 03/19/25 Occupational Therapist: Yana Bowen Subjective Subjective: Pt arrives with dx of R wrist strain. Pt injury occurred at work when she went to lay hand flat on surface resulting in shooting pain MF to RF up to elbow dorsum of hand occurring mar 03 2025. Pt then went to see Dr [facility] who placed pt on prednisone which has helped with swelling as well as pain. pt has been off of prednisone for 2 days. Pt states she is now just taking ibprofen. Pt is R hand dominant. 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 [employer] Processing: R 15# L 50# Lateral Pinch: R 7# L 13# Tripod Pinch: R 5# L 12# Edema Wrist: R 18 cm L 17.5 cm Sensation Sensation Comments: R hand D3 and D4 diminished protective sensation Nine Hole Peg Right: 28 Left: 22 Quick DASH-Disab of Arm,Shoulder& Hand Quick DASH Score: 31.8175 Goals Goal:: pt will improve R kindergartners helper strength to 30# or more in order to return to work duties pt will improve R lateral and tripod pinch strength by 2# or more in order to return to work duties Goal:: pt will improve wrist extension equal to non affected UE in order to return to job related tasks Goal:: pt will report R wrist pain 1/10 or less with movement for return to work Goal:: pt will improve R hand 9 hole peg test score by 5 sec or more (28 sec) in order to perform job related tasks Goal:: pt will demonstrate wrist circumference measurement equal to non affected UE for improved ROM Goal:: pt will improve on semmes sheri monofilament assessment for improved sensation of R MF and RF Goal:: pt will improve quick dash score by 10 points or more in order to improve functional use of R dominant hand Rehabilitation General Assessment: This 50 year old female arrives with dx of R wrist strain. Pt presents with limitations in wrist as well as digit extension, decreased R hand kindergartners helper and pinch strength, swelling as well as pain with functional movement and use of hand impacting performance in job related duties. Pt would benefit from OT services to address the above concerns. As per C9 pt to be seen 2-3x a week 12 sessions. Rehabilitation Potential: Good Anticipated Interventions Anticipated Interventions: A/AAROM/PROM, Strengthening, Edema Control, Triggerpoint Release, Sensory Retraining, Education re Diagnosis and Home Program Visit Plan Frequency: 2-3x /Week Duration: 4-6 Weeks General Plan: strengthen kindergartners helper and pinch strengthen extensors R wrist ext ROM radial nerve glides edema management TEXT: Thank you for the opportunity to evaluate your patient. For Medicare and Medicare HMO plans, please review the plan of care and approve it. It will need to be FAXED BACK to us at [phone] for Medicare purposes. Please let me know if there are questions or concerns regarding this plan of care. Physician Signature: Date:
--- NOTE | 2025-04-16 18:00 | HP.OTDCSUM ---
Discharge Summary D/C Summary: It has been my pleasure to treat JOSE DE JESUS BOWEN under orders from JOSE Murrell, for the diagnosis of R wrist strain for a total of 5 visit(s). Please see the following information for a summary of their discharge status. Overall Improvement % Improvement: 100 Objective Objective/Function: progress made in all goals discharge at this time and pt released back to work per physician appointment this date R 60/70 L 60/70 full composite fist R director athletic 55# L director athletic 55# lateral pinch R 15# L 15# tripod pinch R 15# L 18# Goals Patient Goals: Regain Strength, Decrease Pain, Decrease Swelling/Stiffness, Improve Fine Motor Skills, Use Hand/Wrist/Arm Normally Again, Decrease Tingling/Numbness, Increase ROM, Resume Former Household Responsibilities (Cooking,Cleaning,Yard, etc.) and Resume Hobbies Goal:: pt will improve R director athletic strength to 30# or more in order to return to work duties goal met 55# pt will improve R lateral and tripod pinch strength by 2# or more in order to return to work duties goal met Goal:: pt will improve wrist extension equal to non affected UE in order to return to job related tasks 60/70 goal met Goal:: pt will report R wrist pain 1/10 or less with movement for return to work 0/10 goal met Goal:: pt will improve R hand 9 hole peg test score by 5 sec or more (28 sec) in order to perform job related tasks R hand 20 sec goal met Goal:: pt will demonstrate wrist circumference measurement equal to non affected UE for improved ROM R 18.5 cm Goal:: pt will improve on semmes sheri monofilament assessment for improved sensation of R MF and RF R MF and RF 2.83 normal sensation Goal:: pt will improve quick dash score by 10 points or more in order to improve functional use of R dominant hand Plan Plan: Continue POC: 4-6 weeks (2-3x week) D/C Information Discharge Comments: This 50 year old female arrives with dx of R hand pain. pt progressed through therapy and has now met all goal. insurance date limit for c9 is 04/18/25 discharge from OT services at this time. pt discharged form physician office as well as this date. d/c sentence: If there are questions or concerns regarding this patient's occupational therapy, please fell free to call me at [phone]. Thank you for the referral of this patient. Sincerely, Yana Bowen
== END 2025-04-16 19:00 | disposition home or self-care (01) ==
LOC: OT 17:30
PROVIDERS: PCP Family Medicine; Referring Provider Physician Assistant; Visit Provider Physician Assistant
DX: S66.911D Strain of unspecified muscle, fascia and tendon at wrist and hand level, right hand, subsequent encounter (principal)
CPT/HCPCS: 97110; 97166; 97530